=== PATIENT | female | born 1985 | race Caucasian/White ===

== ENCOUNTER 2024-01-04 11:50 | Emergency (ER) | payer BC, SELFPAY ==
[2024-01-04 11:54] VITALS: BP 152/90; PULSE 90; RESP 15; TEMP 37.1; O2SAT 100
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
[2024-01-04] MEDS: Ketorolac 15 MG/ML VIAL IVP (12:13)
[2024-01-04] MEDS: fentaNYL 100 MCG/2 ML VIAL 50 MCG IVP (12:13)
[2024-01-04] MEDS: ACETAMINOPHEN 1,000 MG/100 ML BTL 400 MG IVPB (12:14)
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
--- NOTE | 2024-01-04 12:51 | DI.RAD_ITS ---
Exam(s) XR THUMB RT EXAM: XR THUMB RT CLINICAL HISTORY: R thumb pain. TECHNIQUE: 2D digital imaging was performed. COMPARISON: No exams were available for comparison FINDINGS: 3 views No evidence of fracture or dislocation nor degenerative changes in the thumb including the 1st carpom etacarpal joint. No osseous lesions nor erosions. Bone density normal. No radiopaque foreign body. IMPRESSION: No significant osseous findings in the thumb. DATA REPOSITORY: RADIATION DOSE DELIVERED:
--- NOTE | 2024-01-04 12:53 | DI.VRAD_ITS ---
PROCEDURE INFORMATION: Exam: XR Left Clavicle, Complete Exam date and time: 01/04/2024 12:25 PM Age: 38 years old Clinical indication: Injury or trauma; Fall; Blunt trauma (contusions or hematomas); Shoulder; Left TECHNIQUE: Imaging protocol: Radiologic exam of the left clavicle. Complete exam. Views: Any number of views. COMPARISON: No relevant prior studies available. FINDINGS: Bones/joints: There is a displaced midshaft fracture of the left clavicle with major lateral fragment depressed approximately 1.6 cm relative to the major medial fragment. Mild comminution is noted. There is normal alignment at the AC joint and the glenohumeral joint. Soft tissues: Normal. IMPRESSION: Midshaft fracture of left clavicle with displacement. Dictated and Authenticated by: Mango Pollard MD. Ordering:PRADIP Howard MD
--- NOTE | 2024-01-04 12:54 | DI.VRAD_ITS ---
PROCEDURE INFORMATION: Exam: XR Right Finger(s) Exam date and time: 01/04/2024 12:48 PM Age: 38 years old Clinical indication: Other: R thumb pain TECHNIQUE: Imaging protocol: Radiologic exam of the right finger (thumb). Views: Three views (PA, lateral, oblique). COMPARISON: No relevant prior studies available. FINDINGS: Bones/joints: No fracture or other acute osseous abnormality identified. Soft tissues: No soft tissue gas or radiodense foreign body. IMPRESSION: No acute abnormality detected. Dictated and Authenticated by: Mango Pollard MD. Ordering:PRADIP Howard MD
[2024-01-04 13:13] VITALS: BP 117/70; PULSE 84; O2SAT 100
== END 2024-01-04 13:52 | disposition home or self-care (01) ==
LOC: ER 13:56
PROVIDERS: Emergency Provider Physician Assistant
DX: S42.022A Displaced fracture of shaft of left clavicle, initial encounter for closed fracture (principal); M79.644 Pain in right finger(s); M25.512 Pain in left shoulder; V19.3XXA Pedal cyclist (driver) (passenger) injured in unspecified nontraffic accident, initial encounter; W17.89XA Other fall from one level to another, initial encounter
CPT/HCPCS: 96374; 96375; 99284; 73000; 73140; 99283; J0131; J1885; J3010

== ENCOUNTER 2024-01-08 15:57 | Outpatient (CLI) | payer BC, SELFPAY ==
--- NOTE | 2024-01-08 09:30 | DI.RAD_ITS ---
Exam(s) XR CLAVICLE LT EXAM: XR CLAVICLE LT CLINICAL HISTORY: F/U FRACTURE. TECHNIQUE: 2D digital imaging was performed. COMPARISON: CR,XR XR CLAVICLE LT from 01/04/2024 FINDINGS: Two views. Again noted is the comminuted displaced midshaft fracture of the left clavicle, appearing unchanged f rom 01/04/2024. The AC joint is not distracted. IMPRESSION: As above. Unchanged from 01/04/2024. DATA REPOSITORY: RADIATION DOSE DELIVERED:
== END 2024-01-08 15:58 | disposition home or self-care (01) ==
LOC: DIORS 15:58
PROVIDERS: PCP Nurse Practitioner Family; Visit Provider Student in an Organized Health Care Education/Training Program
DX: S42.022D Displaced fracture of shaft of left clavicle, subsequent encounter for fracture with routine healing (principal); X58.XXXD Exposure to other specified factors, subsequent encounter
CPT/HCPCS: 73000

== ENCOUNTER 2024-01-09 09:53 | Day surgery (SDC) | payer BC, SELFPAY ==
[2024-01-09] VITALS (15 sets, daily range): BP systolic 110–150; BP diastolic 58–86; PULSE 65–88; RESP 10–22; TEMP 36.3–37; O2SAT 94–99; BMI 26.4
--- NOTE | 2024-01-09 07:21 | W.PM.DSUDISC ---
Date of service: 01/09/24 Time of Service: 15:00 Discharge Plan Disposition Patient Disposition: Home Condition: Stable Discharge Details Attending Provider: Siddhartha Borges Primary Care Provider: Jessa Bhatt Home Meds and New Rx's Prescriptions: New naproxen 250 mg tablet 250 - 500 mg PO BID PRN (Reason: Moderate pain) Qty: 30 0RF oxycodone 5 mg tablet 5 - 10 mg PO Q4H PRN (Reason: Moderate to severe pain) Qty: 7 0RF Continued albuterol sulfate 90 mcg/actuation HFA aerosol inhaler 2 puff INHALATION Q4H cetirizine [24Hour Allergy] 10 mg tablet 10 mg PO DAILY PRN Discharge Instructions Additional Instructions: Surgery: Left clavicle ORIF Activity: Nonweightbearing left upper extremity. Support forearm with sling while up and about or on pillows while resting. Encourage increasing elbow, wrist, and hand range of motion to prevent stiffness. Gentle use hand and fingers okay. A physical therapy prescription will be provided in the office at follow-up if/when needed. Prescriptions: Naproxen 250 mg take 1-2 every 12 hours with a meal as needed for moderate pain Oxycodone 5 mg take 1-2 every every 4-6 hours as needed for moderate-severe pain or discomfort [id number] Tylenol/acetaminophen may be used as needed for mild pain These pain medications may be taken all at once or in different combinations as needed. Dressings: Leave splint and dressing in place until follow-up. Keep clean and dry at all times. Follow-up: 10-[address] Borges You may take off the leg compression stockings this evening at home. You may also leave them on a few days longer if you have a history of leg swelling or edema. Let us know right away if you develop any redness, drainage, fevers, chest pain, or trouble breathing. Do not drink alcohol or drive for at least 24 hours after anesthesia. Please call the office during business hours with any questions or concerns. Discharge Orders Discharge Orders: Discharge Order (Routine); Ordered 01/09/24 Ordered By: Hiro Naranjo DS: Diagnosis Discharge Diagnosis (1) Fracture of left clavicle: Status: Acute
--- NOTE | 2024-01-09 07:29 | ROE_ITS ---
Date of service: 01/09/24 Time of Service: 12:45 Operative Note Operative Note DATE OF PROCEDURE: 01/09/24 PRE-OP DIAGNOSIS: Left displaced clavicle fracture PROCEDURE: Left clavicle open reduction internal fixation, CPT #25069 SURGEON: Siddhartha Borges WAREHOUSE SHIPPER: Hiro Naranjo ANESTHESIA TYPE: Local By Surgeon, General LMA/ETT and Primary Nerve Block Refer to Anesthesia Record Patient was transported to: PACU Implants: Synthes 2.7mm VA LCP clavicle plate system Left LC1 with 1x medial & lateral 2.7mm cortex screws & 4x medial & lateral locking screws Indications: Please see complete medical record for details. Procedure Description: In the operating room, general anesthesia was induced. The patient was positioned supine on the operating room table. All bony prominences were well- padded. Preoperative antibiotics were administered. The clavicle was prepped and draped in the usual sterile fashion. The correct patient, procedure, and side of the procedure were all verified prior to incision. The planned incision was pre-injected with local anesthetic containing epinephrine. The fracture site was approached raising full-thickness flaps down to bone. The incision was extended medially laterally as necessary. Care was taken to preserve soft tissue attachments. The fracture ends were identified. Bone forceps were used to provisionally obtain reduction. The 2.7 mm drill was used perpendicular to the fracture from anterior to posterior and a suture tape was shuttled through the drill hole doubled over and secured over the anterior superior clavicle with Nice knot securing the reduction. An appropriate precontoured superior plate was applied and rotated to best fit patient anatomy. It was compressed to bone with a cortex screw medially and laterally, and then an additional lateral, followed by sequentially filling with locking screws medially and laterally with the lateral cortex screw replaced with a walker. The plate and fractures were all inspected and demonstrated excellent stability and fixation strength. AP, cephalic tilt, and [id number] fluoroscopy confirmed appropriate fracture reduction and hardware placement. The wound was copiously irrigated with normal saline. Deep and subcutaneous tissue was closed in a full-thickness watertight fashion with buried interrupted 2-0 Monocryl. Subcuticular layer was closed using running 3-0 Monocryl. Skin glue was applied over the incision followed by a Mepilex Band-Aid. The patient awoke from anesthesia without complication and was transferred to the recovery room in a stable condition.
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
[2024-01-09] MEDS: Lactated Ringers 1,000 ML 30 ML IV (10:47)
--- NOTE | 2024-01-09 11:11 | W.ANESNERVE ---
Nerve Block Single Injection Procedure Date and Time Date Performed: 01/09/24 Procedure Start: 11:34 Location Where Procedure Performed Procedure Location: Day Surgery Unit Reason Performed: Postoperative Analgesia Requesting Provider: Siddhartha Borges Timeout Performed Timeout Performed: Yes Monitoring Used ECG, Blood Pressure, SpO2 and ETCO2 Sterility Sterility: Hand Hygiene, Surgical Cap, Surgical Mask, Sterile Gloves and Chlorhexidine Sedation Given During Procedure Sedation Given (Indicate Dose Given): Versed IV Dose:: 2 mg Patient Mental Status Patient Mental Status: Sedate with meaningful communication Nerve Block 1st Nerve Block: Laterality: Left Block Type: Superficial Cervical Plexus Ultrasound Image Saved?: Yes Needle / Catheter Used: 80mm SonoPlex II Local Anesthetic Bolus (Indicate Dose Given): Lidocaine used for local infiltration of skin and Bupivacaine 0.5% Dose:: 5 mL Additives (Indicate Dose Given): None Ultrasound: Sterile probe cover and gel used Nerve Stimulator: Supplement to Ultrasound use and No twitch or parasthesia noted < 0.5 mA Paresthesia: None Procedure Tolerated: No Complications Procedure Outcome: Successful Performed By: Vincenzo Hook
[2024-01-09] MEDS: ceFAZolin 2 GM/50 ML BAG IVPB (12:25)
[2024-01-09] MEDS: TRANEXAMIC ACID/SOD. CHL. 1,000 MG/100 ML BAG 600 MG IVPB (12:35)
[2024-01-09] MEDS: Bupivacaine 0.25% Pres-Free W/EPI 30 ML VIAL (13:18)
--- NOTE | 2024-01-09 14:03 | DI.RAD_ITS ---
Exam(s) XR CLAVICLE LT LIMITED 1V EXAM: XR CLAVICLE LT LIMITED 1V CLINICAL HISTORY: (1) Fracture of left clavicle:. TECHNIQUE: 2D and realtime digital imaging was performed. COMPARISON: CR XR CLAVICLE LT from 01/08/2024 FINDINGS: Hard copy image shows placement of a fixation plate across the clavicle for fracture fixation. The a lignment appears anatomic. Please see procedure note for details. Fluoro time: 15.9seconds RADIATION DOSE DELIVERED: fredy Lopez=0.99 mGy
--- NOTE | 2024-01-09 14:53 | W.ANESPOSTOP ---
Postoperative Evaluation Date, Time and Location Date Performed: 01/09/24 Time Performed: 14:53 Patient Location: PACU Vital Signs Most Recent Imported Vital Signs: Most Recent Vital Signs Temp Pulse Resp BP Pulse Ox 36.7 C 83 17 124/77 99 01/09/24 14:40 01/09/24 14:40 01/09/24 14:40 01/09/24 14:40 01/09/24 14:40 Pain Score Most Recent Pain Score: Most Recent Pain Score Pain Level 4 01/09/24 11:21 Assessment Mental Status: Awake (Alert & Oriented to Patient Baseline) Airway and Respiratory Function: Patent airway with normal (patient baseline) respiratory exam Cardiovascular Function: Hemodynamically Stable Hydration Status: Adequately Hydrated Nausea & Vomiting: No Nausea or Vomiting Pain: Pain is tolerable per patient Peripheral Nerve Block: Regional nerve block not resolved at time of post operative discharge
== END 2024-01-09 16:15 | disposition home or self-care (01) ==
LOC: SUR 09:53
PROVIDERS: PCP Nurse Practitioner Family; Visit Provider Student in an Organized Health Care Education/Training Program
PROC: (CPT 23515; principal; 2024-01-09 12:30)
DX: S42.022A Displaced fracture of shaft of left clavicle, initial encounter for closed fracture; V18.0XXA Pedal cycle driver injured in noncollision transport accident in nontraffic accident, initial encounter
CPT/HCPCS: 23515; 76000; 76942; 81025; 73000; J0131; J0665; J0690; J1100; J1885; J2250; J2405; J2704

== ENCOUNTER 2024-01-21 09:29 | Outpatient (CLI) | payer BC, SELFPAY ==
--- NOTE | 2024-01-21 09:44 | DI.RAD_ITS ---
Exam(s) XR CLAVICLE LT EXAM: XR CLAVICLE LT CLINICAL HISTORY: F/U FRACTURE. TECHNIQUE: 2D digital imaging was performed. COMPARISON: CR,XR XR CLAVICLE LT from 01/04/2024 CR XR CLAVICLE LT from 01/08/2024 XA XR CLAVICLE LT LIMITED 1V from 01/09/2024 FINDINGS: Two views There has been interval ORIF of the left clavicle fracture on 01/09/2024. Alignment remains stable and the dorsal fixation plate across of mid shaft clavicle remain satisfacto ry appearance. No hardware loosening. No evidence of osteomyelitis. Fracture line still visible bu t without displacement. The AC joint is not distracted. There is no evidence of osteomyelitis. IMPRESSION: Stable satisfactory appearance. DATA REPOSITORY: RADIATION DOSE DELIVERED:
== END 2024-01-21 09:30 | disposition home or self-care (01) ==
LOC: DIORS 09:29
PROVIDERS: PCP Nurse Practitioner Family; Visit Provider Student in an Organized Health Care Education/Training Program
DX: S42.022D Displaced fracture of shaft of left clavicle, subsequent encounter for fracture with routine healing (principal); X58.XXXD Exposure to other specified factors, subsequent encounter
CPT/HCPCS: 73000

== ENCOUNTER 2024-03-03 12:10 | Outpatient (CLI) | payer BC, SELFPAY ==
--- NOTE | 2024-03-03 09:45 | DI.RAD_ITS ---
Exam(s) XR CLAVICLE LT EXAM: XR CLAVICLE LT CLINICAL HISTORY: F/U CLAVICLE ORIF. TECHNIQUE: 2D digital imaging was performed. COMPARISON: CR XR CLAVICLE LT from 01/21/2024 FINDINGS: Two views. Again noted is a dorsal fixation plate across the midshaft fracture site in the clavicle. Hardware remains in satisfactory position. No evidence of hardware fracture or loosening. Fracture line exhibits some healing but is still somewhat visible. AC joint appears unremarkable. No evidenc e of osteomyelitis. IMPRESSION: Satisfactory appearance DATA REPOSITORY: RADIATION DOSE DELIVERED:
== END 2024-03-03 12:11 | disposition home or self-care (01) ==
LOC: DIORS 12:10
PROVIDERS: PCP Nurse Practitioner Family; Visit Provider Student in an Organized Health Care Education/Training Program
DX: S42.022D Displaced fracture of shaft of left clavicle, subsequent encounter for fracture with routine healing (principal)
CPT/HCPCS: 73000

== ENCOUNTER 2024-03-10 10:31 | Outpatient (REF) | payer BC, SELFPAY ==
--- NOTE | 2024-03-10 09:30 | PAPFT_PTH ---
PATIENT: Tram Sharp LOC: [facility] U#:[id number] AGE/SX: 38/F ROOM: RE03/10/[address]: Lisette Dalton NP : 1985 BED: DIS: 03/10/2024 SPEC #: [id number] RECD: 03/10/24 13:16 STATUS: MICKY REQ #: [id number] ALISSON: 03/10/24 09:[address]: Lisette Dalton NP DEPT: [facility] Cytology RECD BY: Savanah Pradhan ENTERED: 03/10/24 13:16 SP TYPE: PAPFT OTHR DR: Jessa Bhatt APRN Tissues: 1 - CX/ENDOCX FOR PAP SMEARS Procedures: PAP THIN PREP/UVM Screening HPV DNA PROBE Comments: [id number] (HPV 16 & 18/45) (CHLAMYDIA/GC)
[2024-03-11 13:24] LABS: Chlamydia Result Negative (Negative); GC Result Negative (Negative)
== END 2024-03-10 10:32 | disposition home or self-care (01) ==
LOC: LBN 10:31
PROVIDERS: PCP Nurse Practitioner Family; Visit Provider Nurse Practitioner Women's Health
DX: Z01.419 Encounter for gynecological examination (general) (routine) without abnormal findings (principal); G47.9 Sleep disorder, unspecified; Z12.4 Encounter for screening for malignant neoplasm of cervix; Z12.31 Encounter for screening mammogram for malignant neoplasm of breast
CPT/HCPCS: 87491; 87591; 88142; 87624

== ENCOUNTER 2024-04-27 01:04 | Outpatient (CLI) | payer BC, SELFPAY ==
--- NOTE | 2024-04-27 07:45 | DI.MAMMO_ITS ---
Exam(s) MAMMO SCREENING EXAM: MAMMO SCREENING CLINICAL HISTORY: screening TECHNIQUE: Mammograms were interpreted according to the usual protocol including computer analysis w [employer] CAD system, tomosynthesis and C-view imaging. COMPARISON: None. Baseline examination. FINDINGS: The breasts are composed of heterogeneously dense fibroglandular densities, Breast Density category C . No suspicious masses or suspicious microcalcifications are seen. No skin thickening or abnormal axillary lymph nodes are seen. IMPRESSION: BI-RADS Category 1, Negative mammogram. Yearly screening mammography is recommended. Breast Density Category C, heterogeneously Dense. The mammogram demonstrates the patient's breast tissue is dense. Dense breast tissue is very common a nd is not abnormal but dense breast tissue can make it harder to find cancer on a mammogram. Also, de nse breast tissue may increase breast cancer risk. This information about the result of the mammogram report was provided to the patient to raise their awareness. Use this report when you speak with the patient about their risks for breast cancer, which includes their family history. At that time, you may recommend additional screening tests (Ultrasound or MRI) as they might be useful based on their r isk. A negative radiographic report should not delay biopsy if a dominant or clinically suspicious mass is present. Up to ten percent of cancers are not identified on mammography. A negative report may reinforce clinical impression. Adenosis and dense breasts may obscure an underlying neoplasm. False positive reports average 6 to 10%.
== END 2024-04-27 01:24 ==
PROVIDERS: PCP Nurse Practitioner Family; Visit Provider Nurse Practitioner Women's Health
DX: Z12.31 Encounter for screening mammogram for malignant neoplasm of breast (principal)
CPT/HCPCS: 77063; 77067

== ENCOUNTER 2024-05-05 10:22 | Outpatient (CLI) | payer BC, SELFPAY ==
--- NOTE | 2024-05-05 09:00 | DI.RAD_ITS ---
Exam(s) XR CLAVICLE LT EXAM: XR CLAVICLE LT INDICATION: F/U ORIF. COMPARISON: CR XR CLAVICLE LT from 03/03/2024 TECHNIQUE: 2D digital imaging was performed. Two views. FINDINGS: There has been continued healing of the clavicle fracture, now barely visible. No change in hardware alignment. No new abnormalities. DATA REPOSITORY: RADIATION DOSE DELIVERED:
== END 2024-05-05 10:23 | disposition home or self-care (01) ==
LOC: DIORS 10:22
PROVIDERS: PCP Nurse Practitioner Family; Visit Provider Student in an Organized Health Care Education/Training Program
DX: S42.022D Displaced fracture of shaft of left clavicle, subsequent encounter for fracture with routine healing (principal); X58.XXXD Exposure to other specified factors, subsequent encounter
CPT/HCPCS: 73000

== ENCOUNTER 2024-05-18 02:50 | Outpatient (CLI) | payer BC, SELFPAY ==
[2024-05-18 11:19] LABS: Calculated LDL 118 mg/dL (<100); Cholesterol 189 mg/dL (<200); HDL Cholesterol 60 mg/dL (40-60); Triglyceride 55 mg/dL (<150); Vitamin B12 274 pg/mL (193-986)
== END 2024-05-18 02:51 | disposition home or self-care (01) ==
LOC: LBO 02:50
PROVIDERS: PCP Nurse Practitioner Family; Visit Provider Nurse Practitioner Family
DX: Z00.00 Encounter for general adult medical examination without abnormal findings (principal); Z78.9 Other specified health status
CPT/HCPCS: 36415; 80061; 82607; 83036

== ENCOUNTER 2025-04-01 03:45 | Outpatient (CLI) | payer BC, SELFPAY ==
[2025-04-01 09:03] LABS: TSH (W/Ref FT4) 1.87 uIU/mL (0.36-3.74)
[2025-04-01 22:09] LABS: FSH 21.0 mIU/mL (See Note)
== END 2025-04-01 03:46 | disposition home or self-care (01) ==
LOC: LBO 03:45
PROVIDERS: PCP Nurse Practitioner Family; Visit Provider Nurse Practitioner Women's Health
DX: N92.1 Excessive and frequent menstruation with irregular cycle (principal); R23.2 Flushing
CPT/HCPCS: 36415; 83001; 84443

== ENCOUNTER 2025-07-02 02:43 | Outpatient (CLI) | payer BC, SELFPAY ==
[2025-07-02 07:34] LABS: Glucose 81 mg/dL (74-106)
[2025-07-02 13:52] LABS: Cholesterol 146 mg/dL (<200); HDL Cholesterol 50 mg/dL (>40)
== END 2025-07-02 02:44 | disposition home or self-care (01) ==
LOC: LBO 02:43
PROVIDERS: PCP Nurse Practitioner Family; Referring Provider Nurse Practitioner Family; Visit Provider Nurse Practitioner Family
DX: Z00.00 Encounter for general adult medical examination without abnormal findings (principal)
CPT/HCPCS: 36415; 80061; 82947

== ENCOUNTER 2025-07-29 07:00 | Emergency (ER) | payer BC, SELFPAY ==
--- NOTE | 2025-07-29 07:00 | RT.EKG_ITS ---
APPROVED REPORT Exam: Resting ECG Reason for Exam: sob Patient Location: E HR:90 bpm ECG Measurements Heart Rate 90 AXIS MI 116 P 12 QRSd 68 QRS 11 QT 351 T 30 QTc 429 Conclusion Sinus rhythm, rate 90 No interval abnormalities No STEMI No priors available for comparison
[2025-07-29 07:04] VITALS: BP 117/78; PULSE 101; RESP 20; TEMP 37.3; O2SAT 95
[2025-07-29 07:09] VITALS: BP 117/78; PULSE 101; RESP 20; TEMP 37.3; O2SAT 95
--- NOTE | 2025-07-29 07:27 | ED.GENADUL_ITS ---
Discharge Plan Disposition Patient Disposition: Home Condition: Stable Discharge Details Clinical Impression: Influenza A, Asthma Primary Care Provider: Jessa Bhatt ED Provider: Dalia Monteiro Home Meds and New Rx's Prescriptions: New oseltamivir [Tamiflu] 75 mg capsule 75 mg PO BID 5 Days Qty: 10 0RF prednisone 20 mg tablet 40 mg PO DAILY 4 Days Qty: 8 0RF Rx Instructions: Start 07/30/2025 No Action cholecalciferol (vitamin D3) PO DAILY mecobalamin (vitamin B12) PO DAILY fluticasone propionate 50 mcg/actuation spray,suspension 1 spray intranasal Q12H Qty: 16 3RF Rx Instructions: administer into each nostril loratadine [Claritin] 10 mg tablet 10 mg PO DAILY albuterol sulfate 90 mcg/actuation HFA aerosol inhaler 2 puff INHALATION Q4H Qty: 1 3RF fluoxetine 40 mg capsule 40 mg PO DAILY Qty: 90 3RF fluticasone furoate-vilanterol [Breo Ellipta] 100-25 mcg/dose blister with device See Rx Instructions .ROUTE .COMPLEX Qty: 60 1RF Dose Instruction: INHALE 1 PUFF ONCE DAILY Rx Instructions: INHALE 1 PUFF ONCE DAILY Discharge Instructions Instructions: Flu, Adult ED Additional Instructions: You were seen in the emergency department today for evaluation of fever, body aches, and cough, and were found to have influenza A. You also had some evidence of your asthma acting up. In our emergency department, you had a full physical examination performed, received a breathing treatment and intravenous fluids, as well as a dose of Toradol, which is in the ibuprofen family. You received your first dose of steroids for your asthma. You had a chest x-ray that did not show any sign of pneumonia, and I have sent a prescription for the remainder of your steroid course as well as Tamiflu to your pharmacy. Please take both of these medications until they are gone, even if you start to feel better. Tamiflu, when taken within the first 48 hours of illness, can shorten the duration of flu symptoms. You will need to continue to use your asthma treatments as prescribed. Please use therapeutic dosing of Tylenol (acetaminophen) & Advil (ibuprofen) in an alternating fashion as follows: Take 1000mg of Tylenol every 6 hours without missing doses- that is 4 times per day. Long Term in between the Tylenol doses, take 600mg of Advil also on a 6 hour schedule, that is also 4 times per day. With this strategy, you will be taking something for fever/pain as often as every 3 hours. The daily maximum dosing of Tylenol is 4000mg, and the daily maximum dosing of Advil is 2400mg. Please note that some common cold medications & prescription pain medications may contain acetaminophen and you need to read OTC drug labels and factor that in to maximum daily doses. Please follow-up with your primary care provider in the next few days to discuss this visit and any symptoms that change, worsen, or persist. Thank you for allowing us to be part of your care. Stand Alone Forms: Portal Information Discharge Data Discharge Date/Time-TO BE ENTERED AT DEPARTURE: 07/29/25 09:00 HPI General Mode of arrival: ambulatory . Date/Time Provider Initiated Documentation: 07/29/25 07:01 . Limitations to Documentation: no limitations . Information obtained by: patient . HPI Narrative: This is a 40-year-old female patient with a past medical history significant for asthma, allergies, who is presenting for evaluation of fever, body aches, shortness of breath and cough since yesterday. The patient reports that she started to feel quite unwell, has been managing her symptoms at home with Tylenol and ibuprofen, last dose of Tylenol was this morning, and has been using her rescue inhaler as needed for shortness of breath with increasing frequency from her baseline. She reports that she has had a stuffy nose, her right ear hurts, and her entire body feels sore. She denies chest pain, does have a sensation of tightness and shortness of breath, endorses some generalized abdominal discomfort with no nausea or vomiting. She reports a sore throat that improves when she drinks cold fluids. She reports some lightheadedness and brain fog. She was able to get her COVID and flu shot this year about 1 month ago. Related Data Home Medications ?Medication ?Instructions ?Recorded ?Confirmed cholecalciferol (vitamin D3) PO DAILY 02/12/24 5 mecobalamin (vitamin B12) PO DAILY 02/12/24 06/22/25 albuterol sulfate 90 mcg/actuation 2 puff inhalation Q 4H #1 g 11/05/24 07/29/25 aerosol inhaler loratadine 10 mg tablet (Claritin) 10 mg PO DAILY 12/1107/29/25 fluoxetine 40 mg capsule 40 mg PO DAILY #90 caps 10/1307/29/25 fluticasone propionate 50 1 spray intranasal Q12H #16 grams 06/22/25 07/29/25 mcg/actuation nasal spray,suspension fluticasone furoate 100 See Rx Instructions .Route 1 08/24/24 07/29/25 mcg-vilanterol 25 mcg/dose .COMPLEX #60 ea inhalation powder (Breo Ellipta) oseltamivir 75 mg capsule (Tamiflu) 75 mg PO BID 5 day s #10 caps 07/29/25 prednisone 20 mg tablet 40 mg (2 x 20 mg) PO DAILY 4 days 07/29/25 #8 tabs Previous Rx's ?Medication ?Instructions ?Recorded albuterol sulfate 90 mcg/actuation 2 puff inhalation Q 4H #1 g 11/05/24 aerosol inhaler fluoxetine 40 mg capsule 40 mg PO DAILY #90 caps 10/13 fluticasone propionate 50 1 spray intranasal Q12H #16 grams 06/22/25 mcg/actuation nasal spray,suspension fluticasone furoate 100 See Rx Instructions .Route 1 08/24/24 mcg-vilanterol 25 mcg/dose .COMPLEX #60 ea inhalation powder (Breo Ellipta) oseltamivir 75 mg capsule (Tamiflu) 75 mg PO BID 5 day s #10 caps 07/29/25 prednisone 20 mg tablet 40 mg (2 x 20 mg) PO DAILY 4 days 07/29/25 #8 tabs Allergies Allergy/AdvReac Type Severity Reaction Status Date / Time montelukast AdvReac worsening Verified 07/29/25 07:10 depressed mood Allergy shot Allergy Anaphylaxis Uncoded 07/29/25 07:10 General Stated Complaint: RespSymp SEN: 3 Exam Narrative Exam Narrative: Gen: Awake and alert, in no apparent distress HEENT: Non-icteric sclera, PERRL, posterior pharynx without erythema, exudate, or guarding, right TM with a small effusion, no bulging or purulence, left TM clear Neck: Supple, full range of motion Lungs: Mild tachypnea, no significant respiratory distress, diminished lung sounds throughout without audible wheezes, rhonchi, rales. CV: Appears well perfused, heart with regular rate and rhythm, strong distal pulses Abdomen: Non-distended, soft, nontender to palpation without rigidity, rebound, or guarding. MSK: Moves 4 extremities without apparent limitation in ROM. No peripheral edema, no unilateral calf swelling or tenderness. Skin: Visualized skin without rashes, cyanosis. Neuro: Normal Gait, no obvious focal deficits or facial asymmetry. Speaks in full, clear sentences. Psych: Appropriate for situation. Course Vital Signs Vital signs: Vital Signs Temperature 37.3 C 07/29/25 07:04 Pulse 101 H 07/29/25 07:04 Respiratory Rate 20 07/29/25 07:04 Blood Pressure 117/78 07/29/25 07:04 Pulse Oximetry 95 07/29/25 07:04 Temperature 37.3 C 07/29/25 07:09 Temperature Source Oral 07/29/25 07:09 Pulse 101 H 07/29/25 07:09 Respiratory Rate 20 07/29/25 07:09 Respiratory Effort Short of Breath 07/29/25 07:16 Respiratory Depth Normal 07/29/25 07:16 Blood Pressure 117/78 07/29/25 07:09 Pulse Oximetry 95 07/29/25 07:09 Oxygen Delivery Method Room Air 07/29/25 07:09 Oxygen Flow Rate 0 07/29/25 07:09 Medical Decision Making This is a 40-year-old female patient presenting for evaluation of subjective fever, cough, shortness of breath and bodyaches. My differential includes but is not limited to viral URI, pneumonia, bronchitis, reactive airway disease exacerbation. The patient's right TM effusion is likely in the setting of her URI/eustachian tube dysfunction, has a history of allergies, does not appear consistent with otitis media. No evidence for exudative pharyngitis. The patient is not experiencing chest pain and my concern for ACS is low. No evidence of fluid overload on physical examination to suggest pulmonary edema or pleural effusion, exam not consistent with pneumothorax. I considered pulmonary embolism, though the patient's symptoms are notably infectious in nature, she has no DVT signs, and her heart rate at the time of my examination is 90, she meets PERC criteria for PE rule out. I will provide the patient with a liter of IV fluids, as well as Toradol, prednisone, and a duo nebulizer treatment. I will obtain labs to include CBC, CMP, magnesium, and will obtain a chest x-ray. The patient's EKG shows a normal sinus rhythm without evidence of ischemia, interval abnormality, or ectopy. There are no priors available for comparison. - I independently interpreted the laboratory studies, which show no significant leukocytosis, anemia, or thrombocytopenia. The chemistry panel is without evidence of electrolyte abnormality, kidney dysfunction, or liver injury. Fl uvid swab is positive for influenza A, the patient did have improvement in her work of breathing after duo nebulizer, and tolerated oral fluids without difficulty. Given the brief duration of symptoms and her history of asthma I do feel it reasonable to initiate Tamiflu treatment, and I also provided her with a prescription for the remainder of her prednisone burst. At this time, the patient has had a full medical evaluation and is safe for discharge to home. They are hemodynamically stable, ambulatory, and tolerating PO. They are understanding of the follow-up plan and return precautions. They left our facility without incident. 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 Asthma Surgical History [place] teeth extracted [place], [place] 1999 Family History Father Alcohol use disorder Substance use disorder Asthma Depression Anxiety Paternal Aunt Alcohol use disorder Substance use disorder Cancer Depression Paternal Uncle Alcohol use disorder Substance use disorder Asthma Paternal Grandfather Alcohol use disorder Substance use disorder Asthma Diabetes Paternal Grandmother Asthma Depression Diabetes Maternal Grandmother Ocular melanoma Hypertension Depression Cancer Occular melanoma Mother Depression Maternal Aunt Depression Social History Smoking/Tobacco Use Status: Former Tobacco Use Tobacco: How many years used: 5 Second Hand Exposure: No Smoking risk assessment performed?: Yes Alcohol Intake: former Year quit: 2022 Drug use: Never Substance use type: does not use Adopted: No Caregiver/Support person: No Foster care: No Household members: spouse Housing: house Number of Children: 0 number of grandchildren: 0 Communication Needs: None Education Level: master's degree Do you need help understanding health information?: Never current occupation: [employer] Pets and animals: Yes (3 Dogs, 1 Cat) Sexually active: Yes Do you think of yourself as: lesbian/gillis/homosexual Current gender identity: female What is your relationship status?: How often do you talk on the phone with friends or family?: three or more times per week How often do you get together with friends or relatives?: once per week Do you belong to any clubs or organized social groups?: yes Panel score (0-1 are the most socially isolated patients): 3 What type of physical activity do you participate in: weight lifting, running and additional Details: Hockey Duration: 30-45 minutes/day Frequency: 3-4 times per week Lakeisha/Anabaptism: None Special lakeisha needs: No Seatbelt use: always Helmet use: Yes Drive intox or ride w/intox car driver: No Do you feel safe at home: Yes Do you feel safe in your relationship?: Yes Female Reproductive History Menstrual control method: other (same sex relationship) History History 0 Para Hx # Term Pregnancies Multiple births Hx # Pregnancies Ectopic pregnancies AB induced Hx Number of Living Children AB spontaneous
[2025-07-29 07:41] LABS: Abs Immature Grans 0.02 10^3/uL (0.0-0.06); HCT 35.5 % (36.0-46.0); HGB 12.2 g/dL (11.2-15.7); Immature Grans % 0.4 %; MCH 31.0 pg (27.0-33.0); MCHC 34.4 % (32.0-36.0); MCV 90 fL (80-95); MPV 9.6 fL (8.0-11.0); Platelet Count 187 10^3/uL (130-400); RBC 3.93 10^6/uL (3.93-5.22); RDW 12.0 % (11.7-14.6); RDW-SD 39.8 fL; WBC 4.83 10^3/uL (4.4-10.8)
[2025-07-29] MEDS: Albuterol/Ipratropium 3 ML UPD VIAL UPD (07:46)
[2025-07-29] MEDS: predniSONE 20 MG TAB 40 MG PO (07:46)
[2025-07-29] MEDS: Ketorolac 15 MG/ML VIAL IVP (07:46)
[2025-07-29] MEDS: Lactated Ringers 1,000 ML 1000 ML IV (07:47)
[2025-07-29 07:57] LABS: COVID-19 PCR Negative (Negative); RSV PCR Negative (Negative)
[2025-07-29 07:58] LABS: Magnesium 1.8 mg/dL (1.6-2.6)
[2025-07-29 08:00] LABS: ALT 14 U/L (10-49); AST 20 U/L (<34); Albumin 4.0 g/dL (3.2-5.0); Alkaline Phosphatase 72 U/L (46-116); Anion Gap 8.8 mmol/L (3-11); BUN 10 mg/dL (9-23); Bilirubin, Total 0.4 mg/dL (0.2-1.2); CO2 23.2 mmol/L (20.0-31.0); Calcium 8.4 mg/dL (8.3-10.6); Chloride 107 mmol/L (98-107); Glucose 108 mg/dL (74-106); Potassium 3.8 mmol/L (3.5-5.1); Sodium 139 mmol/L (136-145); Total Protein 7.1 g/dL (5.7-8.2)
--- NOTE | 2025-07-29 08:19 | DI.RAD_ITS ---
Exam(s) XR CHEST 2V PA LATERAL EXAM: XR CHEST 2V PA LATERAL CLINICAL HISTORY: URI/cough, hx asthma TECHNIQUE: 2D digital imaging was performed. Two views. COMPARISON: No exams were available for comparison FINDINGS: HEART: Normal size. Aorta: Not dilated. PULMONARY VASCULATURE: Normal. MEDIASTINUM: Unremarkable. LUNGS: Clear. PLEURAL SPACE: No pleural effusion or pneumothorax. BONE:Hardware in left clavicle. SOFT TISSUES: Unremarkable. IMPRESSION: No acute abnormality. DATA REPOSITORY: RADIATION DOSE DELIVERED:
[2025-07-29 08:23] VITALS: BP 106/52; PULSE 109; RESP 18; O2SAT 97
[2025-07-29 09:00] VITALS: BP 119/53; PULSE 102; RESP 18; O2SAT 98
== END 2025-07-29 09:00 | disposition home or self-care (01) ==
PROVIDERS: Emergency Provider Emergency Medicine; PCP Nurse Practitioner Family
DX: J10.1 Influenza due to other identified influenza virus with other respiratory manifestations (principal); J45.909 Unspecified asthma, uncomplicated
CPT/HCPCS: 99284; 99285; 94640; 96374; 80053; 87637; 93005; 96361; 71046; 83735; 85025; 93010; J1885; J7512; J7620